=== PATIENT | male | born 1965 | race Caucasian/White ===

== ENCOUNTER 2017-11-19 12:33 | Inpatient (IN) | payer MEDICAID, MEDICARE ==
[~2017-11-19] VITALS: Ht 167.6 cm; Wt 65.8 kg
[2017-11-19] VITALS (11 sets, daily range): BP systolic 73–161
[~2017-11-19 12:33] MED LIST: ACET12.55 PO; ASA81 GT; ASCO500T20 GT; CHLO473M5 MM; DEPAK250 GT; DIPH25CA83 GT; DOCU-144 GT; DULR10 RC; FAMO40TA7 GT; FOLI-43 GT; IPRA0.2S6 INH; LIP20 GT; LORA-259 IM; LOVI30 SQ; MOM PO; MULT-1117 GT; NA P118E RC; ONDA4TAB5 GT; THIA100T13 GT; TYLL650 GT; UTI-STAT GT; XOP.63 INH; ZIN220 GT
[2017-11-19] MEDS ORDERED: NACL 0.9% 1,000 ML IV ONE (12:45)
[2017-11-19 13:04] LABS: BASOPHILS % (AUTO) 0.2 % (0.0-2.0); EOSINOPHILS # (AUTO) 0.4 K/uL (0.0-0.4); EOSINOPHILS % (AUTO) 2.9 % (0.0-4.0); HEMATOCRIT 33.8 % (36-54); HEMOGLOBIN 10.8 g/dL (14.0-18.0); LYMPHOCYTES # (AUTO) 0.7 K/uL (1.0-5.5); LYMPHOCYTES % (AUTO) 5.6 % (20.5-51.5); MEAN CORPUSCULAR HEMOGLOBIN 32 pg (27-31); MEAN CORPUSCULAR HGB CONC 32 % (32-36); MEAN CORPUSCULAR VOLUME 100 fL (79.0-98.0); MONOCYTES % (AUTO) 8.3 % (1.7-9.3); PLATELET COUNT (AUTO) 182 K/uL (130-430); RED BLOOD CELL COUNT(AUTO) 3.37 MIL/uL (4.2-6.2); RED CELL DISTRIBUTION WIDTH 12.4 % (9.0-15.0); WHITE BLOOD COUNT (AUTO) 12.1 K/uL (4.8-10.8)
[2017-11-19 13:09] LABS: PROTHROMBIN TIME 10.4 SECS (9.5-12.5)
[2017-11-19 13:17] LABS: ALBUMIN 3.1 g/dL (3.4-4.8); CALCIUM 8.6 mg/dL (8.4-11.0); CREATININE 0.82 mg/dL (0.55-1.30); POTASSIUM 4.7 mmol/L (3.5-5.1); TOTAL BILIRUBIN 0.2 mg/dL (0.0-1.0)
[2017-11-19 13:40] LABS: BILIRUBIN,URINE NEGATIVE (NEGATIVE); BLOOD, URINE NEGATIVE (NEGATIVE); CLARITY/URINE CLEAR (CLEAR); COLOR,URINE YELLOW (YELLOW); GLUCOSE,URINE NEGATIVE (NEGATIVE); KETONES,URINE NEGATIVE (NEGATIVE); LEUKOCYTE ESTERASE ,URINE NEGATIVE (NEGATIVE); NITRITE, URINE NEGATIVE (NEGATIVE); PROTEIN URINE 2+ (NEGATIVE); UROBILINOGEN,URINE 0.2 (0.2-1.0)
[2017-11-19 13:59] LABS: BACTERIA,URINE FEW /HPF (None Seen)
[2017-11-19 14:00] LABS: FINE GRANULAR CASTS,URINE 0-10 /LPF (None Seen)
[2017-11-19 14:01] LABS: MUCUS,URINE 1+ /LPF (None Seen); OTHER CASTS, URINE WBC CASTS 1+ /LPF (None Seen)
[2017-11-19] MEDS ORDERED: PIPERACILLIN/TAZO 3.375 GM in NS 50 ML IV ONE (14:30)
[2017-11-19] MEDS ORDERED: PIPERACILLIN/TAZOBACTAM 3.375 GM/VIAL (ZOSYN) IV ONE ×2 (15:04→21:04)
[2017-11-19] MEDS ORDERED: TRAM1TAB33 PO (15:12)
[2017-11-19] MEDS ORDERED: HYDR200T80 GT (15:12)
[2017-11-19] MEDS ORDERED: BACI1TAB2 GT (15:12)
[2017-11-19] MEDS ORDERED: LACT1CAP89 GT (15:12)
[2017-11-19] MEDS ORDERED: AZU500 GT (15:12)
[2017-11-19] MEDS ORDERED: ONDANSETRON 4 MG ODT TAB GT SCH (17:30)
[2017-11-19] MEDS ORDERED: DIPHENHYDRAMINE HCL 25 MG CAPSULE GT SCH (17:30)
[2017-11-19] MEDS ORDERED: VALPROIC ACID 250 MG CAPSULE (DEPAKENE) GT SCH (17:30)
[2017-11-19] MEDS ORDERED: CHLORHEXIDINE GLUCONATE 15 ML/DOSE, 480 ML MM SCH (17:30)
[2017-11-19] MEDS ORDERED: BISACODYL 10 MG/SUPPOSITORY RC PRN (17:30)
[2017-11-19] MEDS ORDERED: KCL 20 mEq in 0.45% NS 1000 mL 1,000 ML IV SCH (17:45)
[2017-11-19] MEDS ORDERED: NS 500 ML IV ONE (18:00)
[2017-11-19] MEDS ORDERED: NOREPINEPHRINE BITARTRATE 4 MG in NS 246 ML IV PRN (18:15)
[2017-11-19] MEDS ORDERED: NOREPINEPHRINE 4 MG/4 ML VIAL IV ONE (18:26)
[2017-11-19] MEDS: IPRATROPIUM BROM 0.5 MG/2.5 ML VIAL.NEB (ATROVENT) INH PRN (19:35)
[2017-11-19] MEDS: LEVALBUTEROL HCL 0.63 MG/3 ML VIAL.NEB INH SCH (19:35)
[2017-11-19] MEDS ORDERED: VANCOMYCIN HCL 1 GM/NS PREMIX 250 ML IV ONE (21:00)
[2017-11-19] MEDS ORDERED: cefTRIAXone 1 GM IVPB PREMIX 0 ML IV ONE (21:04)
[2017-11-19] MEDS ORDERED: HYDROXYCHLOROQUINE SULFATE 200 MG TABLET ONE (21:15)
[2017-11-19] MEDS ORDERED: VANCOMYCIN HCL 1000 MG/VIAL IV ONE (21:18)
[2017-11-19] MEDS: LACTULOSE 20 GM/30 ML UDC GT SCH (21:48)
[2017-11-19] MEDS: KCL 20 mEq in D5NS 1000 mL 1,000 ML IV SCH (21:48)
[2017-11-19] MEDS: MILK OF MAGNESIA 30 ML UDC PO SCH (21:48)
[2017-11-19] MEDS: ACETAMINOPHEN WITH CODEINE 12.5 ML UDC PO SCH (21:49)
[2017-11-19] MEDS: DOCUSATE SODIUM 100 MG CAPSULE PO SCH (21:51)
[2017-11-19] MEDS: HYDROXYCHLOROQUINE SULFATE 200 MG TABLET GT SCH (21:51)
[2017-11-19] MEDS: PIPERACILLIN/TAZO 3.375/DEX-IS 50 ML IV SCH (21:51)
[2017-11-19] MEDS: ASCORBIC ACID 500 MG TABLET GT SCH (21:51)
[2017-11-19] MEDS: ATORVASTATIN 20 MG TABLET GT SCH (21:55)
[2017-11-19] MEDS: sulfASALAZINE 500 MG TABLET (AZULFIDINE) GT SCH (22:23)
[2017-11-19] MEDS ORDERED: sulfASALAZINE 500 MG TABLET (AZULFIDINE) ONE (22:26)
[2017-11-20] VITALS (34 sets, daily range): BP systolic 84–170
[2017-11-20] MEDS: PIPERACILLIN/TAZO 3.375/DEX-IS 50 ML IV SCH ×4 (00:09→17:41)
[2017-11-20] MEDS ORDERED: VALPROIC ACID ORAL SYRUP 250 MG/5 ML UDC GT SCH (00:30)
[2017-11-20] MEDS ORDERED: VALPROIC ACID 250 MG CAPSULE (DEPAKENE) ONE (00:52)
[2017-11-20] MEDS: ACETAMINOPHEN 650 MG/20.3 ML UDC GT SCH (02:10)
[2017-11-20] MEDS ORDERED: VALPROIC ACID 250 MG CAPSULE (DEPAKENE) GT SCH (06:00)
[2017-11-20 07:04] LABS: BASOPHILS % (AUTO) 0.2 % (0.0-2.0); HEMATOCRIT 28.1 % (36-54); HEMOGLOBIN 9.2 g/dL (14.0-18.0); LYMPHOCYTES # (AUTO) 0.4 K/uL (1.0-5.5); LYMPHOCYTES % (AUTO) 3.5 % (20.5-51.5); MEAN CORPUSCULAR HEMOGLOBIN 32 pg (27-31); MEAN CORPUSCULAR HGB CONC 33 % (32-36); MEAN CORPUSCULAR VOLUME 99 fL (79.0-98.0); MONOCYTES # (AUTO) 1.3 K/uL (0.0-1.0); MONOCYTES % (AUTO) 11.4 % (1.7-9.3); NEUTROPHILS # (AUTO) 9.8 K/uL (1.8-7.7); NEUTROPHILS % (AUTO) 84.9 % (40.0-70.0); PLATELET COUNT (AUTO) 146 K/uL (130-430); RED BLOOD CELL COUNT(AUTO) 2.85 MIL/uL (4.2-6.2); WHITE BLOOD COUNT (AUTO) 11.5 K/uL (4.8-10.8)
[2017-11-20 07:11] LABS: CALCIUM 8.6 mg/dL (8.4-11.0); CHLORIDE 100 mmol/L (98-107); CREATININE 1.52 mg/dL (0.55-1.30); GLUCOSE 127 mg/dL (70-99); POTASSIUM 3.6 mmol/L (3.5-5.1); SODIUM SERUM 138 mmol/L (136-145); UREA NITROGEN, BLOOD 29 mg/dL (8-21)
[2017-11-20 07:21] LABS: GFR AFRICAN AMERICAN 62 mL/min (>90)
[2017-11-20 07:22] LABS: ANION GAP < 3 (5-15)
[2017-11-20] MEDS: LORazepam 2 MG/ML VIAL IVP PRN ×2 (07:33→13:31)
[2017-11-20] MEDS ORDERED: CHLORHEXIDINE GLUCONATE 15 ML/DOSE, 480 ML MM SCH (07:51)
[2017-11-20] MEDS ORDERED: NS 500 ML IV ONE (08:30)
[2017-11-20] MEDS: ENOXAPARIN SODIUM 30 MG/0.3 ML SYRINGE SQ SCH (10:10)
[2017-11-20] MEDS: ASCORBIC ACID 500 MG TABLET GT SCH ×2 (10:11→20:35)
[2017-11-20] MEDS: FOLIC ACID 1 MG TABLET GT SCH (10:11)
[2017-11-20] MEDS: ASPIRIN 81 MG TAB.CHEW GT SCH (10:11)
[2017-11-20] MEDS: ACETAMINOPHEN WITH CODEINE 12.5 ML UDC PO SCH (10:11)
[2017-11-20] MEDS: LACTULOSE 20 GM/30 ML UDC GT SCH ×3 (10:11→20:34)
[2017-11-20] MEDS: FAMOTIDINE 20 MG TABLET GT SCH (10:11)
[2017-11-20] MEDS: DOCUSATE SODIUM 100 MG CAPSULE PO SCH ×2 (10:12→20:36)
[2017-11-20] MEDS: MULTIVITAMINS TAB 1 TABLET GT SCH (10:12)
[2017-11-20] MEDS: sulfASALAZINE 500 MG TABLET (AZULFIDINE) GT SCH ×2 (10:12→21:20)
[2017-11-20] MEDS: THIAMINE HCL 100 MG TABLET GT SCH (10:12)
[2017-11-20] MEDS: HYDROXYCHLOROQUINE SULFATE 200 MG TABLET GT SCH ×2 (10:13→21:17)
[2017-11-20] MEDS: VALPROIC ACID ORAL SYRUP 250 MG/5 ML UDC GT SCH ×2 (10:14→21:18)
[2017-11-20] MEDS: KCL 20 mEq in D5NS 1000 mL 1,000 ML IV SCH ×2 (10:19→13:31)
[2017-11-20] MEDS: NOREPINEPHRINE BITARTRATE 4 MG in D5W 246 ML IV PRN ×2 (10:20→14:25)
[2017-11-20] MEDS ORDERED: EPINEPHrine JECT 1 MG/10 ML SYR IVP ONE ×2 (12:30→14:42)
[2017-11-20] MEDS ORDERED: AMIODARONE HCL 150 MG/3ML VIAL IV ONE (12:30)
[2017-11-20] MEDS ORDERED: INSULIN REGULAR, HUMAN 100 UNITS/ML, 10 ML VIAL (novoLIN R) SUBCUT PRN (14:30)
[2017-11-20] MEDS ORDERED: MAGNESIUM SULFATE 1 GM/2 ML VIAL IV ONE (14:42)
[2017-11-20] MEDS ORDERED: NS 1000 ML IV.SOLN IV ONE (14:42)
[2017-11-20] MEDS ORDERED: DEXTROSE 50%-WATER 50 ML DISP.SYRIN IVP PRN ×2 (14:45)
[2017-11-20] MEDS ORDERED: GLUCOSE 15 GM GEL (in 37.5 GM TUBE) PO PRN ×2 (14:45)
[2017-11-20] MEDS ORDERED: NITROGLYCERIN 1 INCH (GM) OINT. TP ONE (15:00)
[2017-11-20] MEDS ORDERED: AMIODARONE HCL 900 MG in D5W 482 ML IV SCH (19:30)
[2017-11-20] MEDS: MILK OF MAGNESIA 30 ML UDC PO SCH (20:34)
[2017-11-20] MEDS: ATORVASTATIN 20 MG TABLET GT SCH (20:35)
[2017-11-20] MEDS: ACETAMINOPHEN WITH CODEINE 12.5 ML UDC GT SCH (20:35)
[2017-11-20] MEDS: QUEtiapine FUMARATE 25 MG TABLET PO SCH (21:00)
[2017-11-20] MEDS: VANCOMYCIN HCL 1,250 MG in NS 250 ML IV SCH (21:21)
[2017-11-20] MEDS: NITROGLYCERIN 1 INCH (GM) OINT. TP SCH (22:25)
[2017-11-21] VITALS (32 sets, daily range): BP systolic 92–127
[2017-11-21] MEDS: KCL 20 mEq in D5NS 1000 mL 1,000 ML IV SCH ×3 (00:15→23:20)
[2017-11-21] MEDS: PIPERACILLIN/TAZO 3.375/DEX-IS 50 ML IV SCH ×5 (00:16→23:20)
[2017-11-21] MEDS: LORazepam 2 MG/ML VIAL IVP PRN ×6 (02:56→20:19)
[2017-11-21] MEDS: NITROGLYCERIN 1 INCH (GM) OINT. TP SCH ×3 (06:02→21:51)
[2017-11-21 06:58] LABS: ALBUMIN 2.2 g/dL (3.4-4.8); CALCIUM 7.8 mg/dL (8.4-11.0); CREATININE 1.33 mg/dL (0.55-1.30); POTASSIUM 3.3 mmol/L (3.5-5.1); TOTAL BILIRUBIN 0.4 mg/dL (0.0-1.0)
[2017-11-21 07:23] LABS: BASOPHILS % (AUTO) 0.4 % (0.0-2.0); EOSINOPHILS % (AUTO) 0.6 % (0.0-4.0); HEMATOCRIT 22.9 % (36-54); HEMOGLOBIN 7.5 g/dL (14.0-18.0); LYMPHOCYTES # (AUTO) 0.7 K/uL (1.0-5.5); LYMPHOCYTES % (AUTO) 9.3 % (20.5-51.5); MEAN CORPUSCULAR HEMOGLOBIN 32 pg (27-31); MEAN CORPUSCULAR HGB CONC 33 % (32-36); MEAN CORPUSCULAR VOLUME 98 fL (79.0-98.0); MONOCYTES # (AUTO) 0.9 K/uL (0.0-1.0); MONOCYTES % (AUTO) 12.6 % (1.7-9.3); NEUTROPHILS # (AUTO) 5.8 K/uL (1.8-7.7); NEUTROPHILS % (AUTO) 77.1 % (40.0-70.0); PLATELET COUNT (AUTO) 128 K/uL (130-430); RED BLOOD CELL COUNT(AUTO) 2.34 MIL/uL (4.2-6.2); RED CELL DISTRIBUTION WIDTH 12.7 % (9.0-15.0); WHITE BLOOD COUNT (AUTO) 7.4 K/uL (4.8-10.8)
[2017-11-21] MEDS: ENOXAPARIN SODIUM 30 MG/0.3 ML SYRINGE SQ SCH (09:04)
[2017-11-21] MEDS: LACTULOSE 20 GM/30 ML UDC GT SCH ×3 (09:04→20:21)
[2017-11-21] MEDS: ACETAMINOPHEN WITH CODEINE 12.5 ML UDC GT SCH ×2 (09:05→20:20)
[2017-11-21] MEDS: THIAMINE HCL 100 MG TABLET GT SCH (09:06)
[2017-11-21] MEDS: MULTIVITAMINS TAB 1 TABLET GT SCH (09:06)
[2017-11-21] MEDS: ASPIRIN 81 MG TAB.CHEW GT SCH (09:06)
[2017-11-21] MEDS: QUEtiapine FUMARATE 25 MG TABLET PO SCH ×2 (09:06→20:21)
[2017-11-21] MEDS: FOLIC ACID 1 MG TABLET GT SCH (09:06)
[2017-11-21] MEDS: AMIODARONE HCL 200 MG TABLET PO SCH ×2 (09:06→20:22)
[2017-11-21] MEDS: ASCORBIC ACID 500 MG TABLET GT SCH ×2 (09:06→20:21)
[2017-11-21] MEDS: VALPROIC ACID ORAL SYRUP 250 MG/5 ML UDC GT SCH ×2 (09:07→20:20)
[2017-11-21] MEDS: FAMOTIDINE 20 MG TABLET GT SCH (09:07)
[2017-11-21] MEDS: DOCUSATE SODIUM 100 MG CAPSULE PO SCH ×2 (09:07→20:21)
[2017-11-21] MEDS: sulfASALAZINE 500 MG TABLET (AZULFIDINE) GT SCH ×2 (09:08→20:23)
[2017-11-21] MEDS: HYDROXYCHLOROQUINE SULFATE 200 MG TABLET GT SCH ×2 (09:18→20:21)
[2017-11-21] MEDS: NA PHOS,M-B/NA PHOS,DI-BA 118 ML (FLEET ENEMA) RC SCH (10:25)
[2017-11-21] MEDS: MILK OF MAGNESIA 30 ML UDC PO SCH (20:21)
[2017-11-21] MEDS: ATORVASTATIN 20 MG TABLET GT SCH (20:21)
[2017-11-21] MEDS: VANCOMYCIN HCL 1,250 MG in NS 250 ML IV SCH (20:24)
[2017-11-22] VITALS (20 sets, daily range): BP systolic 96–124
[2017-11-22] MEDS ORDERED: NITROGLYCERIN 1 INCH (GM) OINT. ONE (06:18)
[2017-11-22] MEDS: PIPERACILLIN/TAZO 3.375/DEX-IS 50 ML IV SCH ×4 (06:30→23:57)
[2017-11-22] MEDS: NITROGLYCERIN 1 INCH (GM) OINT. TP SCH ×3 (06:31→22:50)
[2017-11-22 06:44] LABS: ALANINE AMINOTRANSFERASE 54 U/L (12-78); ASPARTATE AMINOTRANSFERASE 56 U/L (10-37); CALCIUM 7.9 mg/dL (8.4-11.0); CHLORIDE 109 mmol/L (98-107); CREATININE 1.18 mg/dL (0.55-1.30); GLUCOSE 92 mg/dL (70-99); POTASSIUM 3.2 mmol/L (3.5-5.1); SODIUM SERUM 141 mmol/L (136-145); TOTAL BILIRUBIN 0.2 mg/dL (0.0-1.0); UREA NITROGEN, BLOOD 14 mg/dL (8-21)
[2017-11-22 07:04] LABS: ANION GAP < 3 (5-15); GFR AFRICAN AMERICAN 83 mL/min (>90)
[2017-11-22] MEDS: LORazepam 2 MG/ML VIAL IVP PRN ×3 (07:23→10:16)
[2017-11-22] MEDS: IPRATROPIUM BROM 0.5 MG/2.5 ML VIAL.NEB (ATROVENT) INH PRN (07:38)
[2017-11-22] MEDS: LEVALBUTEROL HCL 0.63 MG/3 ML VIAL.NEB INH SCH (07:38)
[2017-11-22] MEDS ORDERED: POTASSIUM CHLORIDE 20 MEQ/PKT PACKET PO ONE (07:45)
[2017-11-22 07:50] LABS: EOSINOPHILS # (AUTO) 0.3 K/uL (0.0-0.4); EOSINOPHILS % (AUTO) 7.1 % (0.0-4.0); HEMATOCRIT 22.4 % (36-54); HEMOGLOBIN 7.1 g/dL (14.0-18.0); LYMPHOCYTES # (AUTO) 0.7 K/uL (1.0-5.5); LYMPHOCYTES % (AUTO) 19.1 % (20.5-51.5); MEAN CORPUSCULAR HEMOGLOBIN 31 pg (27-31); MEAN CORPUSCULAR HGB CONC 32 % (32-36); MEAN CORPUSCULAR VOLUME 99 fL (79.0-98.0); MONOCYTES # (AUTO) 0.4 K/uL (0.0-1.0); MONOCYTES % (AUTO) 11.7 % (1.7-9.3); NEUTROPHILS # (AUTO) 2.3 K/uL (1.8-7.7); NEUTROPHILS % (AUTO) 61.1 % (40.0-70.0); PLATELET COUNT (AUTO) 113 K/uL (130-430); RED BLOOD CELL COUNT(AUTO) 2.28 MIL/uL (4.2-6.2); RED CELL DISTRIBUTION WIDTH 12.9 % (9.0-15.0)
[2017-11-22] MEDS: ACETAMINOPHEN WITH CODEINE 12.5 ML UDC GT SCH ×2 (08:23→21:34)
[2017-11-22] MEDS: ENOXAPARIN SODIUM 30 MG/0.3 ML SYRINGE SQ SCH (08:23)
[2017-11-22] MEDS: QUEtiapine FUMARATE 25 MG TABLET PO SCH ×2 (08:24→21:32)
[2017-11-22] MEDS: MULTIVITAMINS TAB 1 TABLET GT SCH (08:24)
[2017-11-22] MEDS: FOLIC ACID 1 MG TABLET GT SCH (08:24)
[2017-11-22] MEDS: DOCUSATE SODIUM 100 MG CAPSULE PO SCH ×2 (08:24→21:32)
[2017-11-22] MEDS: LACTULOSE 20 GM/30 ML UDC GT SCH ×3 (08:24→21:33)
[2017-11-22] MEDS: FAMOTIDINE 20 MG TABLET GT SCH (08:25)
[2017-11-22] MEDS: ASPIRIN 81 MG TAB.CHEW GT SCH (08:25)
[2017-11-22] MEDS: ASCORBIC ACID 500 MG TABLET GT SCH ×2 (08:25→21:32)
[2017-11-22] MEDS: THIAMINE HCL 100 MG TABLET GT SCH (08:25)
[2017-11-22] MEDS: AMIODARONE HCL 200 MG TABLET PO SCH ×2 (08:25→21:32)
[2017-11-22] MEDS: VALPROIC ACID ORAL SYRUP 250 MG/5 ML UDC GT SCH ×2 (08:29→21:33)
[2017-11-22] MEDS: HYDROXYCHLOROQUINE SULFATE 200 MG TABLET GT SCH ×2 (08:30→21:31)
[2017-11-22] MEDS ORDERED: POTASSIUM CHLORIDE 20 MEQ/PKT PACKET ONE (08:54)
[2017-11-22 08:57] LABS: WHITE BLOOD COUNT (AUTO) 3.7 K/uL (4.8-10.8)
[2017-11-22] MEDS: sulfASALAZINE 500 MG TABLET (AZULFIDINE) GT SCH ×2 (09:16→21:34)
[2017-11-22] MEDS: KCL 20 mEq in D5NS 1000 mL 1,000 ML IV SCH ×2 (15:53→17:56)
[2017-11-22] MEDS: ATORVASTATIN 20 MG TABLET GT SCH (21:32)
[2017-11-22] MEDS: MILK OF MAGNESIA 30 ML UDC PO SCH (21:34)
[2017-11-22] MEDS: VANCOMYCIN HCL 1,250 MG in NS 250 ML IV SCH (21:35)
[2017-11-23 00:45] VITALS: BP_SYST 115
[2017-11-23] MEDS: IPRATROPIUM BROM 0.5 MG/2.5 ML VIAL.NEB (ATROVENT) INH PRN (01:51)
[2017-11-23] MEDS: LORazepam 2 MG/ML VIAL IVP PRN ×3 (02:28→11:12)
[2017-11-23] MEDS: NITROGLYCERIN 1 INCH (GM) OINT. TP SCH ×3 (06:00→22:00)
[2017-11-23] MEDS: PIPERACILLIN/TAZO 3.375/DEX-IS 50 ML IV SCH ×3 (07:05→18:52)
[2017-11-23 08:00] VITALS: BP_SYST 134
[2017-11-23 08:20] LABS: CALCIUM 8.3 mg/dL (8.4-11.0); CREATININE 1.21 mg/dL (0.55-1.30); POTASSIUM 4.3 mmol/L (3.5-5.1)
[2017-11-23 08:23] LABS: BASOPHILS % (AUTO) 0.4 % (0.0-2.0); EOSINOPHILS # (AUTO) 0.5 K/uL (0.0-0.4); EOSINOPHILS % (AUTO) 10.2 % (0.0-4.0); HEMATOCRIT 29.3 % (36-54); HEMOGLOBIN 10.2 g/dL (14.0-18.0); LYMPHOCYTES # (AUTO) 0.5 K/uL (1.0-5.5); MEAN CORPUSCULAR HEMOGLOBIN 32 pg (27-31); MEAN CORPUSCULAR HGB CONC 35 % (32-36); MEAN CORPUSCULAR VOLUME 93 fL (79.0-98.0); MONOCYTES # (AUTO) 0.4 K/uL (0.0-1.0); MONOCYTES % (AUTO) 8.2 % (1.7-9.3); NEUTROPHILS # (AUTO) 3.8 K/uL (1.8-7.7); NEUTROPHILS % (AUTO) 71.2 % (40.0-70.0); PLATELET COUNT (AUTO) 124 K/uL (130-430); RED BLOOD CELL COUNT(AUTO) 3.15 MIL/uL (4.2-6.2); WHITE BLOOD COUNT (AUTO) 5.2 K/uL (4.8-10.8)
[2017-11-23 08:29] LABS: ALBUMIN 2.3 g/dL (3.4-4.8); TOTAL BILIRUBIN 0.3 mg/dL (0.0-1.0)
[2017-11-23] MEDS: HYDROXYCHLOROQUINE SULFATE 200 MG TABLET GT SCH ×2 (10:31→21:46)
[2017-11-23] MEDS: VALPROIC ACID ORAL SYRUP 250 MG/5 ML UDC GT SCH ×2 (10:31→21:47)
[2017-11-23] MEDS: MULTIVITAMINS TAB 1 TABLET GT SCH (10:32)
[2017-11-23] MEDS: AMIODARONE HCL 200 MG TABLET PO SCH ×2 (10:32→21:52)
[2017-11-23] MEDS: FAMOTIDINE 20 MG TABLET GT SCH (10:32)
[2017-11-23] MEDS: FOLIC ACID 1 MG TABLET GT SCH (10:32)
[2017-11-23] MEDS: DOCUSATE SODIUM 100 MG CAPSULE PO SCH ×2 (10:32→21:46)
[2017-11-23] MEDS: ASPIRIN 81 MG TAB.CHEW GT SCH (10:32)
[2017-11-23] MEDS: ENOXAPARIN SODIUM 30 MG/0.3 ML SYRINGE SQ SCH (10:33)
[2017-11-23] MEDS: LACTULOSE 20 GM/30 ML UDC GT SCH ×3 (10:33→21:47)
[2017-11-23] MEDS: ASCORBIC ACID 500 MG TABLET GT SCH ×2 (10:33→21:47)
[2017-11-23] MEDS: QUEtiapine FUMARATE 25 MG TABLET PO SCH ×2 (10:34→21:46)
[2017-11-23] MEDS: THIAMINE HCL 100 MG TABLET GT SCH (10:34)
[2017-11-23] MEDS: NA PHOS,M-B/NA PHOS,DI-BA 118 ML (FLEET ENEMA) RC SCH (10:35)
[2017-11-23] MEDS: sulfASALAZINE 500 MG TABLET (AZULFIDINE) GT SCH ×2 (10:35→21:47)
[2017-11-23 12:16] VITALS: BP_SYST 127
[2017-11-23] MEDS: 0.45% NACL 1,000 ML IV SCH (13:14)
[2017-11-23] MEDS: ACETAMINOPHEN WITH CODEINE 12.5 ML UDC GT SCH ×2 (15:46→21:49)
[2017-11-23 19:36] VITALS: BP_SYST 128
[2017-11-23] MEDS ORDERED: VANCOMYCIN HCL 500 MG/VIAL IV ONE (21:35)
[2017-11-23] MEDS ORDERED: VANCOMYCIN HCL 1000 MG/VIAL IV ONE (21:35)
[2017-11-23] MEDS: ATORVASTATIN 20 MG TABLET GT SCH (21:46)
[2017-11-23] MEDS: MILK OF MAGNESIA 30 ML UDC PO SCH (21:48)
[2017-11-23] MEDS: VANCOMYCIN HCL 1,250 MG in NS 250 ML IV SCH (21:53)
[2017-11-24] VITALS (8 sets, daily range): BP systolic 116–157
[2017-11-24] MEDS: PIPERACILLIN/TAZO 3.375/DEX-IS 50 ML IV SCH ×4 (00:07→17:23)
[2017-11-24] MEDS: NITROGLYCERIN 1 INCH (GM) OINT. TP SCH ×3 (05:04→21:21)
[2017-11-24] MEDS: HYDROXYCHLOROQUINE SULFATE 200 MG TABLET GT SCH ×2 (08:55→20:26)
[2017-11-24] MEDS: VALPROIC ACID ORAL SYRUP 250 MG/5 ML UDC GT SCH ×2 (08:56→20:19)
[2017-11-24] MEDS: LACTULOSE 20 GM/30 ML UDC GT SCH ×3 (08:56→20:19)
[2017-11-24] MEDS: ACETAMINOPHEN WITH CODEINE 12.5 ML UDC GT SCH ×2 (08:57→20:20)
[2017-11-24] MEDS: QUEtiapine FUMARATE 25 MG TABLET PO SCH ×2 (08:58→20:21)
[2017-11-24] MEDS: MULTIVITAMINS TAB 1 TABLET GT SCH (08:58)
[2017-11-24] MEDS: FAMOTIDINE 20 MG TABLET GT SCH (08:58)
[2017-11-24] MEDS: FOLIC ACID 1 MG TABLET GT SCH (08:58)
[2017-11-24] MEDS: DOCUSATE SODIUM 100 MG CAPSULE PO SCH ×2 (08:59→20:22)
[2017-11-24] MEDS: THIAMINE HCL 100 MG TABLET GT SCH (08:59)
[2017-11-24] MEDS: ASCORBIC ACID 500 MG TABLET GT SCH ×2 (08:59→20:21)
[2017-11-24] MEDS: AMIODARONE HCL 200 MG TABLET PO SCH ×2 (08:59→20:21)
[2017-11-24] MEDS: sulfASALAZINE 500 MG TABLET (AZULFIDINE) GT SCH ×2 (09:00→20:22)
[2017-11-24] MEDS: ASPIRIN 81 MG TAB.CHEW GT SCH (09:00)
[2017-11-24] MEDS: ENOXAPARIN SODIUM 30 MG/0.3 ML SYRINGE SQ SCH (09:02)
[2017-11-24] MEDS: 0.45% NACL 1,000 ML IV SCH (12:09)
[2017-11-24] MEDS: ACETAMINOPHEN 650 MG/20.3 ML UDC GT SCH (17:22)
[2017-11-24] MEDS: MILK OF MAGNESIA 30 ML UDC PO SCH (20:19)
[2017-11-24] MEDS: VANCOMYCIN HCL 1,250 MG in NS 250 ML IV SCH (20:19)
[2017-11-24] MEDS: ATORVASTATIN 20 MG TABLET GT SCH (20:22)
== END 2017-11-25 00:22 | DRG 720 ==
LOC: SED 12:33 → SIC 15:06 → STU 11-22 16:21
PROVIDERS: ADMIT Family Medicine; ATTEND Family Medicine
PROC: 5A1955Z Respiratory Ventilation, Greater than 96 Consecutive Hours (ICD-10-PCS; principal; 2017-11-19)
PROC: 5A12012 Performance of Cardiac Output, Single, Manual (ICD-10-PCS; 2017-11-20)
PROC: 5A2204Z Restoration of Cardiac Rhythm, Single (ICD-10-PCS; 2017-11-20)
PROC: 0D20XUZ Change Feeding Device in Upper Intestinal Tract, External Approach (ICD-10-PCS; 2017-11-22)
PROC: 30233N1 Transfusion of Nonautologous Red Blood Cells into Peripheral Vein, Percutaneous Approach (ICD-10-PCS; 2017-11-23)
DX: A41.9 Sepsis, unspecified organism (principal); I46.9 Cardiac arrest, cause unspecified; I21.A1 Myocardial infarction type 2; Z99.11 Dependence on respirator [ventilator] status; G93.41 Metabolic encephalopathy; J96.22 Acute and chronic respiratory failure with hypercapnia; J15.1 Pneumonia due to Pseudomonas; J15.211 Pneumonia due to Methicillin susceptible Staphylococcus aureus; Z93.0 Tracheostomy status; J69.0 Pneumonitis due to inhalation of food and vomit; D69.6 Thrombocytopenia, unspecified; D63.8 Anemia in other chronic diseases classified elsewhere; I47.2 Ventricular tachycardia; K72.90 Hepatic failure, unspecified without coma; R53.2 Functional quadriplegia; R13.10 Dysphagia, unspecified; K94.23 Gastrostomy malfunction; I49.9 Cardiac arrhythmia, unspecified; E78.00 Pure hypercholesterolemia, unspecified; F32.9 Major depressive disorder, single episode, unspecified; E11.9 Type 2 diabetes mellitus without complications; M06.9 Rheumatoid arthritis, unspecified; G40.909 Epilepsy, unspecified, not intractable, without status epilepticus; H35.50 Unspecified hereditary retinal dystrophy; Y83.3 Surgical operation with formation of external stoma as the cause of abnormal reaction of the patient, or of later complication, without mention of misadventure at the time of the procedure; H54.8 Legal blindness, as defined in USA; Z87.01 Personal history of pneumonia (recurrent); Z95.0 Presence of cardiac pacemaker; Z91.011 Allergy to milk products; Z79.899 Other long term (current) drug therapy; Z79.01 Long term (current) use of anticoagulants; Z86.73 Personal history of transient ischemic attack (TIA), and cerebral infarction without residual deficits; Z79.82 Long term (current) use of aspirin; Y92.89 Other specified places as the place of occurrence of the external cause; Z78.1 Physical restraint status; Z74.01 Bed confinement status
CPT/HCPCS: 36415; 36600; 43760; 70450-TC; 71045; 74018; 80048; 80053; 80164-TC; 80202-TC; 81000-TC; 82140-TC; 82803-TC; 82962; 83605; 83880; 84484; 85025; 85610-TC; 85730-TC; 86886; 86900; 86901; 86920; 87040-TC; 87070-TC; 87081; 87086; 87186-TC; 87205-TC; 93005; 93306; 94002; 94003; 94640; 94760; 96360; 99291; J0171; J0282; J0696; J1650; J1815; J2060; J2543; J3370; J3475; J7030; J7040; J7050; J7060; J7614; P9021; Q0162; Q0163

== ENCOUNTER 2017-12-30 12:59 | Inpatient (IN) | payer MEDICAID, OTHER ==
[~2017-12-30] VITALS: Ht 152.4 cm; Wt 55.8 kg
[~2017-12-30 12:59] MED LIST changes: +AZU500 GT; +BACI1TAB2 GT; +HYDR200T80 GT; +LACT1CAP89 GT; +TRAM1TAB33 PO
[2017-12-30 13:02] VITALS: BP_SYST 140
[2017-12-30 13:38] LABS: BASOPHILS % (AUTO) 0.2 % (0.0-2.0); EOSINOPHILS # (AUTO) 0.1 K/uL (0.0-0.4); EOSINOPHILS % (AUTO) 0.5 % (0.0-4.0); HEMATOCRIT 37.3 % (36-54); HEMOGLOBIN 11.6 g/dL (14.0-18.0); LYMPHOCYTES # (AUTO) 0.4 K/uL (1.0-5.5); LYMPHOCYTES % (AUTO) 3.6 % (20.5-51.5); MEAN CORPUSCULAR HEMOGLOBIN 30 pg (27-31); MEAN CORPUSCULAR HGB CONC 31 % (32-36); MEAN CORPUSCULAR VOLUME 98 fL (79.0-98.0); MONOCYTES # (AUTO) 0.7 K/uL (0.0-1.0); MONOCYTES % (AUTO) 6.7 % (1.7-9.3); NEUTROPHILS # (AUTO) 9.4 K/uL (1.8-7.7); PLATELET COUNT (AUTO) 185 K/uL (130-430); RED BLOOD CELL COUNT(AUTO) 3.82 MIL/uL (4.2-6.2); RED CELL DISTRIBUTION WIDTH 13.8 % (9.0-15.0); WHITE BLOOD COUNT (AUTO) 10.6 K/uL (4.8-10.8)
[2017-12-30 13:40] LABS: CALCIUM 9.3 mg/dL (8.4-11.0); CHLORIDE 100 mmol/L (98-107); CREATININE 1.04 mg/dL (0.55-1.30); GLUCOSE 97 mg/dL (70-99); POTASSIUM 5.1 mmol/L (3.5-5.1); SODIUM SERUM 140 mmol/L (136-145); UREA NITROGEN, BLOOD 27 mg/dL (8-21)
[2017-12-30 13:44] LABS: ANION GAP < 1 (5-15); GFR AFRICAN AMERICAN 96 mL/min (>90)
[2017-12-30 13:46] LABS: ALANINE AMINOTRANSFERASE 36 U/L (12-78); ALBUMIN 3.2 g/dL (3.4-4.8); ASPARTATE AMINOTRANSFERASE 47 U/L (10-37); TOTAL BILIRUBIN 0.3 mg/dL (0.0-1.0); VALPROIC ACID 22 ug/mL (50-100)
[2017-12-30 13:49] LABS: INR 1.1 (0.80-1.20); PROTHROMBIN TIME 11.1 SECS (9.5-12.5)
[2017-12-30 13:59] LABS: BILIRUBIN,URINE NEGATIVE (NEGATIVE); BLOOD, URINE NEGATIVE (NEGATIVE); CLARITY/URINE CLEAR (CLEAR); COLOR,URINE YELLOW (YELLOW); GLUCOSE,URINE NEGATIVE (NEGATIVE); KETONES,URINE NEGATIVE (NEGATIVE); LEUKOCYTE ESTERASE ,URINE NEGATIVE (NEGATIVE); NITRITE, URINE NEGATIVE (NEGATIVE); PROTEIN URINE 1+ (NEGATIVE); UROBILINOGEN,URINE 0.2 (0.2-1.0)
[2017-12-30] MEDS ORDERED: ASPIRIN 81 MG TAB.CHEW PO ONE (14:00)
[2017-12-30] MEDS ORDERED: LORazepam 2 MG/ML VIAL (FOR ER USE) IVP ONE (14:00)
[2017-12-30] MEDS ORDERED: NS 500 ML IV ONE ×2 (14:00→15:45)
[2017-12-30 14:17] LABS: BACTERIA,URINE FEW /HPF (None Seen); MUCUS,URINE None Seen /LPF (None Seen); RBC,URINE NONE SEEN /HPF (0-3); TRIPLE PHOSPHATE CRYSTAL,UR 0-10 /HPF (None Seen); WBC,URINE 0-3 /HPF (0-3)
[2017-12-30] MEDS ORDERED: DIPH-TET-PERTUS Vaccine 0.5 ML VIAL (ADACEL) I.M. ONE (15:45)
[2017-12-30] MEDS ORDERED: PANTOPRAZOLE SODIUM 40 MG/VIAL (PROTONIX) IVP ONE (15:45)
[2017-12-30] MEDS ORDERED: TYLL650 PO (15:58)
[2017-12-30] MEDS ORDERED: VALP250S3 GT (15:58)
[2017-12-30] MEDS ORDERED: D5LR 1,000 ML IV ONE (16:00)
[2017-12-30] MEDS ORDERED: ONDANSETRON HCL 4 MG/2 ML VIAL IVP PRN (16:00)
[2017-12-30] MEDS ORDERED: IPRATROPIUM/ALBUTEROL SULFATE 3 ML AMPUL.NEB (DUONEB) INH PRN (16:00)
[2017-12-30 16:50] VITALS: BP_SYST 168
[2017-12-30 17:00] VITALS: BP_SYST 134; BP_SYST 167
[2017-12-30 17:30] VITALS: BP_SYST 134
[2017-12-30] MEDS ORDERED: PANTOPRAZOLE SODIUM 40 MG/VIAL (PROTONIX) ONE ×2 (17:58→21:24)
[2017-12-30] MEDS: PANTOPRAZOLE SODIUM 40 MG in NS 50 ML IV SCH ×2 (17:59→21:20)
[2017-12-30 18:44] LABS: BASOPHILS % (AUTO) 0.3 % (0.0-2.0); EOSINOPHILS % (AUTO) 0.4 % (0.0-4.0); HEMATOCRIT 35.3 % (36-54); LYMPHOCYTES # (AUTO) 0.3 K/uL (1.0-5.5); LYMPHOCYTES % (AUTO) 2.7 % (20.5-51.5); MEAN CORPUSCULAR HEMOGLOBIN 31 pg (27-31); MEAN CORPUSCULAR HGB CONC 31 % (32-36); MEAN CORPUSCULAR VOLUME 99 fL (79.0-98.0); MONOCYTES # (AUTO) 0.4 K/uL (0.0-1.0); MONOCYTES % (AUTO) 3.6 % (1.7-9.3); NEUTROPHILS # (AUTO) 9.9 K/uL (1.8-7.7); PLATELET COUNT (AUTO) 168 K/uL (130-430); RED BLOOD CELL COUNT(AUTO) 3.58 MIL/uL (4.2-6.2); RED CELL DISTRIBUTION WIDTH 14.3 % (9.0-15.0); WHITE BLOOD COUNT (AUTO) 10.6 K/uL (4.8-10.8)
[2017-12-30 18:48] LABS: CALCIUM 8.7 mg/dL (8.4-11.0); CHLORIDE 101 mmol/L (98-107); CREATININE 0.98 mg/dL (0.55-1.30); GLUCOSE 138 mg/dL (70-99); POTASSIUM 4.8 mmol/L (3.5-5.1); SODIUM SERUM 142 mmol/L (136-145); UREA NITROGEN, BLOOD 29 mg/dL (8-21)
[2017-12-30 18:52] LABS: GFR AFRICAN AMERICAN 103 mL/min (>90)
[2017-12-30 19:35] LABS: ANION GAP < 3 (5-15)
[2017-12-30 19:37] LABS: CKMB RELATIVE INDEX 1.7 (0.0-2.9); CREATINE KINASE MB 7.6 ng/mL (0-3.6)
[2017-12-30 20:00] VITALS: BP_SYST 139
[2017-12-30] MEDS: IPRATROPIUM/ALBUTEROL SULFATE 3 ML AMPUL.NEB (DUONEB) INH SCH ×2 (20:55→23:18)
[2017-12-30] MEDS ORDERED: LORazepam 2 MG/ML VIAL IVP PRN (23:45)
[2017-12-30] MEDS ORDERED: ACETAMINOPHEN 650 MG/20.3 ML UDC PO PRN (23:45)
[2017-12-30] MEDS ORDERED: DIPHENHYDRAMINE HCL 25 MG CAPSULE GT PRN (23:45)
[2017-12-30] MEDS ORDERED: BISACODYL 10 MG/SUPPOSITORY RC PRN (23:45)
[2017-12-30] MEDS ORDERED: IPRATROPIUM BROM 0.5 MG/2.5 ML VIAL.NEB (ATROVENT) INH PRN (23:45)
[2017-12-30] MEDS ORDERED: CHLORHEXIDINE GLUCONATE 15 ML/DOSE, 480 ML MM SCH (23:45)
[2017-12-30] MEDS ORDERED: PIPERACILLIN/TAZOBACTAM 3.375 GM/VIAL (ZOSYN) IV ONE (23:52)
[2017-12-30] MEDS ORDERED: AZITHROMYCIN 500 MG/VIAL (ZITHROMAX) IV ONE (23:52)
[2017-12-31] VITALS (18 sets, daily range): BP systolic 88–161
[2017-12-31] MEDS: PIPERACILLIN/TAZO 3.375/DEX-IS 50 ML IV SCH ×6 (00:14→23:12)
[2017-12-31] MEDS: AZITHROMYCIN 500 MG in NS 250 ML IV SCH ×2 (01:10→23:52)
[2017-12-31] MEDS: PANTOPRAZOLE SODIUM 40 MG in NS 50 ML IV SCH ×5 (02:43→22:13)
[2017-12-31] MEDS ORDERED: PANTOPRAZOLE SODIUM 40 MG/VIAL (PROTONIX) ONE (02:48)
[2017-12-31] MEDS: IPRATROPIUM/ALBUTEROL SULFATE 3 ML AMPUL.NEB (DUONEB) INH SCH ×6 (03:49→23:39)
[2017-12-31] MEDS: VALPROIC ACID ORAL SYRUP 250 MG/5 ML UDC GT SCH ×4 (06:00→21:27)
[2017-12-31 06:51] LABS: PROTHROMBIN TIME 10.4 SECS (9.5-12.5)
[2017-12-31 07:08] LABS: BASOPHILS % (AUTO) 0.2 % (0.0-2.0); EOSINOPHILS % (AUTO) 0.3 % (0.0-4.0); HEMATOCRIT 38.9 % (36-54); LYMPHOCYTES # (AUTO) 0.5 K/uL (1.0-5.5); LYMPHOCYTES % (AUTO) 4.5 % (20.5-51.5); MEAN CORPUSCULAR HEMOGLOBIN 31 pg (27-31); MEAN CORPUSCULAR HGB CONC 31 % (32-36); MEAN CORPUSCULAR VOLUME 101 fL (79.0-98.0); MONOCYTES # (AUTO) 1.1 K/uL (0.0-1.0); MONOCYTES % (AUTO) 10.7 % (1.7-9.3); NEUTROPHILS # (AUTO) 8.6 K/uL (1.8-7.7); NEUTROPHILS % (AUTO) 84.3 % (40.0-70.0); PLATELET COUNT (AUTO) 142 K/uL (130-430); RED BLOOD CELL COUNT(AUTO) 3.87 MIL/uL (4.2-6.2); RED CELL DISTRIBUTION WIDTH 13.9 % (9.0-15.0); WHITE BLOOD COUNT (AUTO) 10.2 K/uL (4.8-10.8)
[2017-12-31 07:23] LABS: CHLORIDE 104 mmol/L (98-107); POTASSIUM 5.1 mmol/L (3.5-5.1); SODIUM SERUM 146 mmol/L (136-145)
[2017-12-31 07:27] LABS: ANION GAP < 1 (5-15); CALCIUM 8.9 mg/dL (8.4-11.0); CREATININE 0.99 mg/dL (0.55-1.30); GFR AFRICAN AMERICAN 102 mL/min (>90); GLUCOSE 136 mg/dL (70-99); UREA NITROGEN, BLOOD 23 mg/dL (8-21)
[2017-12-31 07:28] LABS: ALANINE AMINOTRANSFERASE 33 U/L (12-78); ALBUMIN 3.1 g/dL (3.4-4.8); ASPARTATE AMINOTRANSFERASE 48 U/L (10-37); TOTAL BILIRUBIN 0.4 mg/dL (0.0-1.0)
[2017-12-31 07:29] LABS: LIPASE 246 U/L (73-393); PHOSPHORUS 4.3 mg/dL (2.7-4.5)
[2017-12-31 07:58] LABS: FREE T4 (FREE THYROXINE) 0.4 ng/dL (0.6-1.6); THYROID STIMULATING HORMONE 0.53 uIu/mL (0.34-4.82)
[2017-12-31] MEDS ORDERED: CHLORHEXIDINE GLUCONATE 15 ML/DOSE, 480 ML MM SCH (08:05)
[2017-12-31] MEDS: HYDROXYCHLOROQUINE SULFATE 200 MG TABLET GT SCH ×2 (09:00→21:26)
[2017-12-31] MEDS: FOLIC ACID 1 MG TABLET GT SCH (09:00)
[2017-12-31] MEDS: sulfASALAZINE 500 MG TABLET (AZULFIDINE) GT SCH ×2 (09:00→21:26)
[2017-12-31] MEDS: LACTOBACILLUS RHAMNOSUS GG 1 CAP CAPSULE GT SCH ×2 (09:00→20:53)
[2017-12-31] MEDS: THIAMINE HCL 100 MG TABLET GT SCH (09:00)
[2017-12-31] MEDS: FAMOTIDINE 20 MG TABLET GT SCH (09:00)
[2017-12-31] MEDS ORDERED: NACL 0.9% 1,000 ML IV ONE ×2 (11:30→14:30)
[2017-12-31] MEDS ORDERED: FLUMAZENIL 0.1 MG/ML IVP PRN (11:30)
[2017-12-31] MEDS ORDERED: NACL 0.9% 1,000 ML IV SCH (12:45)
[2017-12-31] MEDS ORDERED: HYDROCORTISONE SOD SUCC 100 MG/2 ML VIAL IVP ONE (14:30)
[2017-12-31] MEDS ORDERED: METOCLOPRAMIDE HCL 10 MG/2 ML VIAL IVP ONE (14:45)
[2017-12-31] MEDS ORDERED: VANCOMYCIN HCL 500 MG in NS 100 ML IV SCH (15:00)
[2017-12-31] MEDS ORDERED: PANTOPRAZOLE SODIUM 40 MG in NS 50 ML IV SCH (15:00)
[2017-12-31] MEDS: D5LR 1,000 ML IV SCH (15:38)
[2017-12-31] MEDS: METOCLOPRAMIDE HCL 10 MG/2 ML VIAL IVP SCH ×2 (18:07→23:51)
[2017-12-31] MEDS: ATORVASTATIN 20 MG TABLET GT SCH (20:53)
[2017-12-31] MEDS ORDERED: PANTOPRAZOLE SODIUM 40 MG/VIAL (PROTONIX) IVP SCH (21:00)
[2017-12-31] MEDS: MILK OF MAGNESIA 30 ML UDC PO SCH (21:00)
[2017-12-31] MEDS ORDERED: sulfASALAZINE 500 MG TABLET (AZULFIDINE) ONE (21:04)
[2017-12-31] MEDS ORDERED: HYDROXYCHLOROQUINE SULFATE 200 MG TABLET ONE (21:08)
[2017-12-31] MEDS: HYDROCORTISONE SOD SUCC 100 MG/2 ML VIAL IVP SCH (21:27)
[2018-01-01] VITALS (29 sets, daily range): BP systolic 113–163
[2018-01-01] MEDS: PANTOPRAZOLE SODIUM 40 MG in NS 50 ML IV SCH ×5 (03:40→21:25)
[2018-01-01] MEDS: IPRATROPIUM/ALBUTEROL SULFATE 3 ML AMPUL.NEB (DUONEB) INH SCH ×6 (03:56→23:18)
[2018-01-01] MEDS: METOCLOPRAMIDE HCL 10 MG/2 ML VIAL IVP SCH (06:03)
[2018-01-01] MEDS: PIPERACILLIN/TAZO 3.375/DEX-IS 50 ML IV SCH ×3 (06:03→17:33)
[2018-01-01] MEDS: HYDROCORTISONE SOD SUCC 100 MG/2 ML VIAL IVP SCH (06:03)
[2018-01-01] MEDS: D5LR 1,000 ML IV SCH ×3 (06:05→21:28)
[2018-01-01] MEDS: VALPROIC ACID ORAL SYRUP 250 MG/5 ML UDC GT SCH ×3 (06:05→21:27)
[2018-01-01 06:43] LABS: CALCIUM 8.7 mg/dL (8.4-11.0); CREATININE 1.45 mg/dL (0.55-1.30); POTASSIUM 3.2 mmol/L (3.5-5.1)
[2018-01-01 06:49] LABS: BASOPHILS % (AUTO) 0.2 % (0.0-2.0); HEMATOCRIT 29.8 % (36-54); HEMOGLOBIN 9.2 g/dL (14.0-18.0); LYMPHOCYTES # (AUTO) 0.5 K/uL (1.0-5.5); LYMPHOCYTES % (AUTO) 5.8 % (20.5-51.5); MEAN CORPUSCULAR HEMOGLOBIN 31 pg (27-31); MEAN CORPUSCULAR HGB CONC 31 % (32-36); MEAN CORPUSCULAR VOLUME 99 fL (79.0-98.0); MONOCYTES # (AUTO) 0.6 K/uL (0.0-1.0); MONOCYTES % (AUTO) 6.7 % (1.7-9.3); NEUTROPHILS # (AUTO) 7.8 K/uL (1.8-7.7); NEUTROPHILS % (AUTO) 87.3 % (40.0-70.0); PLATELET COUNT (AUTO) 128 K/uL (130-430); RED BLOOD CELL COUNT(AUTO) 3.01 MIL/uL (4.2-6.2); RED CELL DISTRIBUTION WIDTH 14.1 % (9.0-15.0); WHITE BLOOD COUNT (AUTO) 8.9 K/uL (4.8-10.8)
[2018-01-01 07:05] LABS: ALBUMIN 2.6 g/dL (3.4-4.8); FREE T4 (FREE THYROXINE) 1.2 ng/dl (0.8-1.5); TOTAL BILIRUBIN 0.5 mg/dL (0.0-1.0)
[2018-01-01 07:52] LABS: PHOSPHORUS 0.7 mg/dL (2.7-4.5)
[2018-01-01] MEDS ORDERED: K PHOS 30 MM in NS 250 ML IV ONE (08:15)
[2018-01-01] MEDS: FAMOTIDINE 20 MG TABLET GT SCH (08:16)
[2018-01-01] MEDS: LACTOBACILLUS RHAMNOSUS GG 1 CAP CAPSULE GT SCH ×2 (08:16→21:26)
[2018-01-01] MEDS: FOLIC ACID 1 MG TABLET GT SCH (08:16)
[2018-01-01] MEDS: THIAMINE HCL 100 MG TABLET GT SCH (08:16)
[2018-01-01] MEDS: sulfASALAZINE 500 MG TABLET (AZULFIDINE) GT SCH ×2 (10:26→21:26)
[2018-01-01] MEDS: HYDROXYCHLOROQUINE SULFATE 200 MG TABLET GT SCH ×2 (10:26→21:26)
[2018-01-01] MEDS: ACETAMINOPHEN 325 MG TABLET GT PRN (13:30)
[2018-01-01] MEDS ORDERED: HYDROCORTISONE SOD SUCC 100 MG/2 ML VIAL IVP SCH (14:00)
[2018-01-01] MEDS ORDERED: LOPERAMIDE HCL 2 MG CAPSULE GT ONE (19:00)
[2018-01-01] MEDS ORDERED: cloNIDine HCL 0.1 MG TABLET PO PRN (19:15)
[2018-01-01] MEDS: LIPASE/PROTEASE/AMYLASE 1 CAP PO SCH (19:20)
[2018-01-01] MEDS: MILK OF MAGNESIA 30 ML UDC PO SCH (21:00)
[2018-01-01] MEDS: LOPERAMIDE HCL 2 MG CAPSULE GT SCH (21:25)
[2018-01-01] MEDS: ATORVASTATIN 20 MG TABLET GT SCH (21:26)
[2018-01-02] VITALS (18 sets, daily range): BP systolic 125–157
[2018-01-02] MEDS: PIPERACILLIN/TAZO 3.375/DEX-IS 50 ML IV SCH ×5 (00:30→23:14)
[2018-01-02] MEDS: AZITHROMYCIN 500 MG in NS 250 ML IV SCH (00:30)
[2018-01-02] MEDS: PANTOPRAZOLE SODIUM 40 MG in NS 50 ML IV SCH ×4 (02:41→21:48)
[2018-01-02] MEDS: LORazepam 2 MG/ML VIAL IVP PRN ×5 (02:42→23:11)
[2018-01-02] MEDS: IPRATROPIUM/ALBUTEROL SULFATE 3 ML AMPUL.NEB (DUONEB) INH SCH ×5 (03:59→23:24)
[2018-01-02] MEDS: VALPROIC ACID ORAL SYRUP 250 MG/5 ML UDC GT SCH ×3 (05:06→21:53)
[2018-01-02] MEDS: D5LR 1,000 ML IV SCH ×2 (05:06→17:58)
[2018-01-02 06:21] LABS: CALCIUM 8.4 mg/dL (8.4-11.0); CREATININE 1.2 mg/dL (0.55-1.30)
[2018-01-02 06:31] LABS: ALBUMIN 2.3 g/dL (3.4-4.8); POTASSIUM 2.2 mmol/L (3.5-5.1); TOTAL BILIRUBIN 0.3 mg/dL (0.0-1.0)
[2018-01-02] MEDS ORDERED: POTASSIUM CHLORIDE 40 MEQ, LIDOCAINE JECT 2% PF 100 MG 50 MG in NS 250 ML IV ONE (07:00)
[2018-01-02 07:01] LABS: BASOPHILS # (AUTO) 0.1 K/uL (0.0-0.2); BASOPHILS % (AUTO) 1.3 % (0.0-2.0); EOSINOPHILS % (AUTO) 0.2 % (0.0-4.0); HEMATOCRIT 27.3 % (36-54); HEMOGLOBIN 8.7 g/dL (14.0-18.0); LYMPHOCYTES # (AUTO) 0.7 K/uL (1.0-5.5); LYMPHOCYTES % (AUTO) 15.8 % (20.5-51.5); MEAN CORPUSCULAR HEMOGLOBIN 31 pg (27-31); MEAN CORPUSCULAR HGB CONC 32 % (32-36); MEAN CORPUSCULAR VOLUME 97 fL (79.0-98.0); MONOCYTES # (AUTO) 0.4 K/uL (0.0-1.0); MONOCYTES % (AUTO) 8.4 % (1.7-9.3); NEUTROPHILS # (AUTO) 3.4 K/uL (1.8-7.7); NEUTROPHILS % (AUTO) 74.3 % (40.0-70.0); PLATELET COUNT (AUTO) 104 K/uL (130-430); RED BLOOD CELL COUNT(AUTO) 2.83 MIL/uL (4.2-6.2); RED CELL DISTRIBUTION WIDTH 14.4 % (9.0-15.0); WHITE BLOOD COUNT (AUTO) 4.6 K/uL (4.8-10.8)
[2018-01-02] MEDS ORDERED: POTASSIUM CHLORIDE 20 MEQ/PKT PACKET PO ONE (07:30)
[2018-01-02] MEDS: FAMOTIDINE 20 MG TABLET GT SCH (07:56)
[2018-01-02] MEDS: LACTOBACILLUS RHAMNOSUS GG 1 CAP CAPSULE GT SCH ×2 (07:56→21:50)
[2018-01-02] MEDS: LIPASE/PROTEASE/AMYLASE 1 CAP PO SCH ×2 (07:56→11:34)
[2018-01-02] MEDS: FOLIC ACID 1 MG TABLET GT SCH (07:56)
[2018-01-02] MEDS: HYDROXYCHLOROQUINE SULFATE 200 MG TABLET GT SCH ×2 (07:57→21:50)
[2018-01-02] MEDS: THIAMINE HCL 100 MG TABLET GT SCH (07:57)
[2018-01-02] MEDS: sulfASALAZINE 500 MG TABLET (AZULFIDINE) GT SCH ×2 (08:05→21:49)
[2018-01-02] MEDS ORDERED: POTASSIUM CHLORIDE 20 MEQ TAB.PRT.SR PO SCH (09:00)
[2018-01-02] MEDS: LOPERAMIDE HCL 2 MG CAPSULE GT SCH ×3 (09:00→21:50)
[2018-01-02] MEDS ORDERED: COMMUNICATION ORDER XX ONE (13:15)
[2018-01-02] MEDS ORDERED: cloNIDine HCL 0.1 MG TABLET GT PRN (13:17)
[2018-01-02] MEDS ORDERED: K PHOS 30 MM in NS 250 ML IV ONE (14:00)
[2018-01-02 14:38] LABS: TOTAL IRON BIND. CAPACITY 158 ug/dL (250-450)
[2018-01-02] MEDS: NAPH,MB-DB/K PH,MBDB 250 MG TAB GT SCH ×2 (15:06→21:49)
[2018-01-02] MEDS: LIPASE/PROTEASE/AMYLASE 1 CAP GT SCH (17:46)
[2018-01-02] MEDS ORDERED: MENTHOL/ZINC OXIDE 113 GM OINT. TP PRN (18:00)
[2018-01-02] MEDS: POTASSIUM CHLORIDE 20 MEQ/PKT PACKET GT SCH (21:49)
[2018-01-02] MEDS: MILK OF MAGNESIA 30 ML UDC GT SCH (21:49)
[2018-01-02] MEDS: ATORVASTATIN 20 MG TABLET GT SCH (21:50)
[2018-01-03] MEDS: LORazepam 2 MG/ML VIAL IVP PRN ×4 (01:27→18:10)
[2018-01-03] MEDS: PANTOPRAZOLE SODIUM 40 MG in NS 50 ML IV SCH ×5 (01:32→20:26)
[2018-01-03] MEDS: IPRATROPIUM/ALBUTEROL SULFATE 3 ML AMPUL.NEB (DUONEB) INH SCH ×6 (03:55→23:44)
[2018-01-03] MEDS: PIPERACILLIN/TAZO 3.375/DEX-IS 50 ML IV SCH ×2 (05:38→11:25)
[2018-01-03] MEDS: VALPROIC ACID ORAL SYRUP 250 MG/5 ML UDC GT SCH ×3 (05:38→22:48)
[2018-01-03 07:37] LABS: FOLATE (FOLIC ACID) >20.0 ng/mL (>3.0)
[2018-01-03 08:00] VITALS: BP_SYST 127
[2018-01-03] MEDS: LIPASE/PROTEASE/AMYLASE 1 CAP GT SCH ×3 (08:37→18:08)
[2018-01-03] MEDS: FOLIC ACID 1 MG TABLET GT SCH (08:38)
[2018-01-03] MEDS: HYDROXYCHLOROQUINE SULFATE 200 MG TABLET GT SCH ×2 (08:38→20:32)
[2018-01-03] MEDS: FAMOTIDINE 20 MG TABLET GT SCH (08:39)
[2018-01-03] MEDS: LOPERAMIDE HCL 2 MG CAPSULE GT SCH ×3 (08:40→20:27)
[2018-01-03] MEDS: LACTOBACILLUS RHAMNOSUS GG 1 CAP CAPSULE GT SCH ×2 (08:40→20:28)
[2018-01-03] MEDS: THIAMINE HCL 100 MG TABLET GT SCH (08:41)
[2018-01-03] MEDS: NAPH,MB-DB/K PH,MBDB 250 MG TAB GT SCH ×3 (08:41→20:28)
[2018-01-03] MEDS: POTASSIUM CHLORIDE 20 MEQ/PKT PACKET GT SCH ×2 (08:42→20:27)
[2018-01-03] MEDS: sulfASALAZINE 500 MG TABLET (AZULFIDINE) GT SCH ×2 (09:14→20:27)
[2018-01-03 12:00] VITALS: BP_SYST 132
[2018-01-03] MEDS: D5LR 1,000 ML IV SCH (12:10)
[2018-01-03] MEDS ORDERED: QUEtiapine FUMARATE 25 MG TABLET PO ONE (14:30)
[2018-01-03 14:44] LABS: BASOPHILS % (AUTO) 0.4 % (0.0-2.0); EOSINOPHILS # (AUTO) 0.2 K/uL (0.0-0.4); HEMATOCRIT 29.2 % (36-54); LYMPHOCYTES # (AUTO) 0.7 K/uL (1.0-5.5); LYMPHOCYTES % (AUTO) 12.3 % (20.5-51.5); MEAN CORPUSCULAR HEMOGLOBIN 29 pg (27-31); MEAN CORPUSCULAR HGB CONC 31 % (32-36); MEAN CORPUSCULAR VOLUME 96 fL (79.0-98.0); MONOCYTES # (AUTO) 0.3 K/uL (0.0-1.0); MONOCYTES % (AUTO) 5.7 % (1.7-9.3); NEUTROPHILS # (AUTO) 4.1 K/uL (1.8-7.7); NEUTROPHILS % (AUTO) 77.6 % (40.0-70.0); PLATELET COUNT (AUTO) 143 K/uL (130-430); RED BLOOD CELL COUNT(AUTO) 3.06 MIL/uL (4.2-6.2); RED CELL DISTRIBUTION WIDTH 15.1 % (9.0-15.0); WHITE BLOOD COUNT (AUTO) 5.3 K/uL (4.8-10.8)
[2018-01-03 15:21] LABS: CALCIUM 8.4 mg/dL (8.4-11.0); CREATININE 1.2 mg/dL (0.55-1.30); POTASSIUM 3.2 mmol/L (3.5-5.1)
[2018-01-03] MEDS ORDERED: MULTIVIT-MINERALS/FERROUS GLUC 15 ML UDC GT ONE (15:45)
[2018-01-03] MEDS ORDERED: ERGOCALCIFEROL 8000 UNITS/ML ORAL SOLUTION, 60 ML BOTTLE GT ONE (15:45)
[2018-01-03 16:00] VITALS: BP_SYST 140
[2018-01-03] MEDS ORDERED: POTASSIUM CHLORIDE 20 MEQ/PKT PACKET GT ONE (16:00)
[2018-01-03 16:09] LABS: ALBUMIN 2.4 g/dL (3.4-4.8); TOTAL BILIRUBIN 0.3 mg/dL (0.0-1.0)
[2018-01-03 16:10] LABS: PHOSPHORUS 3.6 mg/dL (2.7-4.5)
[2018-01-03] MEDS ORDERED: NS IV SCH (17:00)
[2018-01-03] MEDS ORDERED: AMIKACIN SULFATE IV SCH (17:00)
[2018-01-03] MEDS: ATORVASTATIN 20 MG TABLET GT SCH (20:27)
[2018-01-03] MEDS: QUEtiapine FUMARATE 25 MG TABLET PO SCH (20:28)
[2018-01-03] MEDS: MILK OF MAGNESIA 30 ML UDC GT SCH (20:28)
[2018-01-03 23:35] VITALS: BP_SYST 132
[2018-01-04] MEDS: LORazepam 2 MG/ML VIAL IVP PRN ×2 (00:56→08:04)
[2018-01-04] MEDS: PANTOPRAZOLE SODIUM 40 MG in NS 50 ML IV SCH ×5 (00:57→20:22)
[2018-01-04] MEDS: IPRATROPIUM/ALBUTEROL SULFATE 3 ML AMPUL.NEB (DUONEB) INH SCH ×6 (03:43→23:34)
[2018-01-04] MEDS: VALPROIC ACID ORAL SYRUP 250 MG/5 ML UDC GT SCH ×3 (05:37→21:06)
[2018-01-04] MEDS: D5LR 1,000 ML IV SCH ×2 (05:40→23:17)
[2018-01-04 07:43] LABS: BASOPHILS % (AUTO) 0.2 % (0.0-2.0); EOSINOPHILS # (AUTO) 0.3 K/uL (0.0-0.4); EOSINOPHILS % (AUTO) 4.9 % (0.0-4.0); HEMOGLOBIN 9.4 g/dL (14.0-18.0); LYMPHOCYTES # (AUTO) 0.9 K/uL (1.0-5.5); LYMPHOCYTES % (AUTO) 13.3 % (20.5-51.5); MEAN CORPUSCULAR HEMOGLOBIN 31 pg (27-31); MEAN CORPUSCULAR HGB CONC 33 % (32-36); MEAN CORPUSCULAR VOLUME 96 fL (79.0-98.0); MONOCYTES # (AUTO) 0.5 K/uL (0.0-1.0); MONOCYTES % (AUTO) 6.9 % (1.7-9.3); NEUTROPHILS # (AUTO) 5.1 K/uL (1.8-7.7); NEUTROPHILS % (AUTO) 74.7 % (40.0-70.0); PLATELET COUNT (AUTO) 148 K/uL (130-430); RED BLOOD CELL COUNT(AUTO) 3.03 MIL/uL (4.2-6.2); RED CELL DISTRIBUTION WIDTH 15.1 % (9.0-15.0); WHITE BLOOD COUNT (AUTO) 6.8 K/uL (4.8-10.8)
[2018-01-04 07:46] LABS: ALBUMIN 2.5 g/dL (3.4-4.8); CALCIUM 8.8 mg/dL (8.4-11.0); CREATININE 1.28 mg/dL (0.55-1.30); POTASSIUM 3.7 mmol/L (3.5-5.1); TOTAL BILIRUBIN 0.4 mg/dL (0.0-1.0)
[2018-01-04 08:00] VITALS: BP_SYST 144
[2018-01-04] MEDS ORDERED: ERGOCALCIFEROL 8000 UNITS/ML ORAL SOLUTION, 60 ML BOTTLE GT SCH (09:00)
[2018-01-04] MEDS ORDERED: MULTIVIT-MINERALS/FERROUS GLUC 15 ML UDC GT SCH (09:00)
[2018-01-04] MEDS: FAMOTIDINE 20 MG TABLET GT SCH (09:21)
[2018-01-04] MEDS: THIAMINE HCL 100 MG TABLET GT SCH (09:21)
[2018-01-04] MEDS: QUEtiapine FUMARATE 25 MG TABLET PO SCH ×2 (09:22→20:31)
[2018-01-04] MEDS: HYDROXYCHLOROQUINE SULFATE 200 MG TABLET GT SCH ×2 (09:22→20:31)
[2018-01-04] MEDS: NAPH,MB-DB/K PH,MBDB 250 MG TAB GT SCH ×3 (09:22→20:31)
[2018-01-04] MEDS: sulfASALAZINE 500 MG TABLET (AZULFIDINE) GT SCH ×2 (09:22→20:29)
[2018-01-04] MEDS: FOLIC ACID 1 MG TABLET GT SCH (09:22)
[2018-01-04] MEDS: POTASSIUM CHLORIDE 20 MEQ/PKT PACKET GT SCH ×3 (09:22→20:30)
[2018-01-04] MEDS: LIPASE/PROTEASE/AMYLASE 1 CAP GT SCH ×3 (09:23→17:57)
[2018-01-04] MEDS: LACTOBACILLUS RHAMNOSUS GG 1 CAP CAPSULE GT SCH ×2 (09:23→20:29)
[2018-01-04] MEDS: LOPERAMIDE HCL 2 MG CAPSULE GT SCH ×3 (09:24→20:31)
[2018-01-04 11:15] VITALS: BP_SYST 126
[2018-01-04 16:00] VITALS: BP_SYST 140
[2018-01-04] MEDS ORDERED: ERTAPENEM SODIUM 1 GM in NS 50 ML IV SCH (16:30)
[2018-01-04 16:45] VITALS: BP_SYST 131
[2018-01-04] MEDS: ACETAMINOPHEN 325 MG TABLET GT PRN (17:58)
[2018-01-04 19:19] VITALS: BP_SYST 128
[2018-01-04] MEDS: MILK OF MAGNESIA 30 ML UDC GT SCH (20:30)
[2018-01-04] MEDS: ATORVASTATIN 20 MG TABLET GT SCH (20:30)
[2018-01-04 23:07] VITALS: BP_SYST 136
== END 2018-01-05 00:12 | DRG 720 ==
LOC: SED 12:59 → STU 15:45 → SIC 12-31 10:38 → STU 01-02 11:55
PROVIDERS: ADMIT Internal Medicine; ATTEND Internal Medicine
PROC: 5A1955Z Respiratory Ventilation, Greater than 96 Consecutive Hours (ICD-10-PCS; principal; 2017-12-31)
DX: A41.9 Sepsis, unspecified organism (principal); J96.22 Acute and chronic respiratory failure with hypercapnia; N17.0 Acute kidney failure with tubular necrosis; I21.4 Non-ST elevation (NSTEMI) myocardial infarction; E43 Unspecified severe protein-calorie malnutrition; R40.20 Unspecified coma; G93.1 Anoxic brain damage, not elsewhere classified; A04.72 Enterocolitis due to Clostridium difficile, not specified as recurrent; J18.9 Pneumonia, unspecified organism; Z99.11 Dependence on respirator [ventilator] status; D69.59 Other secondary thrombocytopenia; E86.0 Dehydration; K29.71 Gastritis, unspecified, with bleeding; E87.0 Hyperosmolality and hypernatremia; R53.2 Functional quadriplegia; B36.9 Superficial mycosis, unspecified; Y95 Nosocomial condition; I51.7 Cardiomegaly; L21.9 Seborrheic dermatitis, unspecified; M06.9 Rheumatoid arthritis, unspecified; R13.10 Dysphagia, unspecified; E11.22 Type 2 diabetes mellitus with diabetic chronic kidney disease; E78.00 Pure hypercholesterolemia, unspecified; W18.39XA Other fall on same level, initial encounter; S09.90XA Unspecified injury of head, initial encounter; N30.00 Acute cystitis without hematuria; D63.8 Anemia in other chronic diseases classified elsewhere; F41.9 Anxiety disorder, unspecified; G89.4 Chronic pain syndrome; H35.30 Unspecified macular degeneration; J44.0 Chronic obstructive pulmonary disease with (acute) lower respiratory infection; G40.909 Epilepsy, unspecified, not intractable, without status epilepticus; D62 Acute posthemorrhagic anemia; E87.6 Hypokalemia; E83.39 Other disorders of phosphorus metabolism; F32.3 Major depressive disorder, single episode, severe with psychotic features; B96.1 Klebsiella pneumoniae [K. pneumoniae] as the cause of diseases classified elsewhere; B96.20 Unspecified Escherichia coli [E. coli] as the cause of diseases classified elsewhere; Z93.0 Tracheostomy status; Z93.1 Gastrostomy status; Y93.89 Activity, other specified; Y92.128 Other place in nursing home as the place of occurrence of the external cause; Y99.8 Other external cause status; I69.351 Hemiplegia and hemiparesis following cerebral infarction affecting right dominant side; Z74.01 Bed confinement status; Z68.24 Body mass index [BMI] 24.0-24.9, adult; Z95.0 Presence of cardiac pacemaker; Z91.011 Allergy to milk products; Z79.899 Other long term (current) drug therapy; Z98.2 Presence of cerebrospinal fluid drainage device
CPT/HCPCS: 36415; 36600; 70450-TC; 71045; 74018; 80048; 80053; 80150; 80164-TC; 81000-TC; 82550-TC; 82553-TC; 82607; 82746; 82803-TC; 82962; 83540-TC; 83550-TC; 83690-TC; 83735-TC; 83880; 84100-TC; 84439; 84443-TC; 84484; 85025; 85610-TC; 85730-TC; 87070-TC; 87081; 87186-TC; 87205-TC; 90656; 90715; 93005; 93306; 94003; 94640; 94760; 96361; 96374; 96375; 99285; C9113; J0278; J0456; J1335; J1720; J2060; J2543; J2765; J3370; J3480; J7030; J7050; J7120; J7620

== ENCOUNTER 2018-08-13 18:20 | Inpatient (IN) | payer OTHER, MEDICAID ==
[~2018-08-13] VITALS: Ht 167.6 cm; Wt 70.8 kg
[~2018-08-13 18:20] MED LIST changes: -ACET12.55 PO; -ASCO500T20 GT; -DEPAK250 GT; -DOCU-144 GT; -LOVI30 SQ; -MULT-1117 GT; -NA P118E RC; -ONDA4TAB5 GT; +TRAM-350 PO; -TRAM1TAB33 PO; -TYLL650 GT; +TYLL650 PO; +VALP250S3 GT
[2018-08-13 18:25] VITALS: BP_SYST 99
[2018-08-13 19:32] LABS: BASOPHILS % (AUTO) 0.3 % (0.0-2.0); EOSINOPHILS # (AUTO) 0.2 K/uL (0.0-0.4); EOSINOPHILS % (AUTO) 3.2 % (0.0-4.0); HEMATOCRIT 22.9 % (36-54); HEMOGLOBIN 7.3 g/dL (14.0-18.0); LYMPHOCYTES # (AUTO) 0.9 K/uL (1.0-5.5); LYMPHOCYTES % (AUTO) 11.8 % (20.5-51.5); MEAN CORPUSCULAR HEMOGLOBIN 28 pg (27-31); MEAN CORPUSCULAR HGB CONC 32 % (32-36); MEAN CORPUSCULAR VOLUME 88 fL (79.0-98.0); MONOCYTES # (AUTO) 0.9 K/uL (0.0-1.0); MONOCYTES % (AUTO) 11.8 % (1.7-9.3); NEUTROPHILS # (AUTO) 5.2 K/uL (1.8-7.7); NEUTROPHILS % (AUTO) 72.9 % (40.0-70.0); PLATELET COUNT (AUTO) 330 K/uL (130-430); RED CELL DISTRIBUTION WIDTH 15.5 % (9.0-15.0); WHITE BLOOD COUNT (AUTO) 7.2 K/uL (4.8-10.8)
[2018-08-13 19:35] LABS: CALCIUM 8.3 mg/dL (8.4-11.0); CREATININE 0.96 mg/dL (0.55-1.30)
[2018-08-13 19:40] LABS: INR 1.1 (0.80-1.20); PROTHROMBIN TIME 10.9 SECS (9.5-12.5); TOTAL BILIRUBIN 0.2 mg/dL (0.0-1.0)
[2018-08-13] MEDS ORDERED: PANTOPRAZOLE SODIUM 40 MG/VIAL (PROTONIX) IVP ONE (21:15)
[2018-08-13 21:53] VITALS: BP_SYST 92
[2018-08-13 22:11] VITALS: BP_SYST 90
[2018-08-13 22:55] VITALS: BP_SYST 92
[2018-08-14] MEDS ORDERED: DIPHENHYDRAMINE HCL 25 MG CAPSULE GT SCH
[2018-08-14] MEDS ORDERED: BISACODYL 10 MG/SUPPOSITORY RC PRN
[2018-08-14] MEDS ORDERED: LEVALBUTEROL HCL 0.63 MG/3 ML VIAL.NEB INH SCH
[2018-08-14] MEDS ORDERED: ACETAMINOPHEN 650 MG/20.3 ML UDC PO PRN
[2018-08-14] MEDS ORDERED: LORazepam 2 MG/ML VIAL IVP PRN
[2018-08-14] MEDS ORDERED: IPRATROPIUM BROM 0.5 MG/2.5 ML VIAL.NEB (ATROVENT) INH PRN
[2018-08-14] MEDS: NACL 0.9% 1,000 ML IV SCH ×2 (00:08→17:15)
[2018-08-14] MEDS ORDERED: PANTOPRAZOLE SODIUM 40 MG/VIAL (PROTONIX) ONE (00:13)
[2018-08-14] MEDS ORDERED: DIPHENHYDRAMINE HCL 25 MG CAPSULE GT PRN (07:33)
[2018-08-14 08:15] VITALS: BP_SYST 98
[2018-08-14] MEDS ORDERED: ACETAMINOPHEN 650 MG/20.3 ML UDC GT PRN (08:30)
[2018-08-14] MEDS ORDERED: INSULIN REGULAR, HUMAN 100 UNITS/ML, 10 ML VIAL (humuLIN R) SUBCUT PRN (08:30)
[2018-08-14] MEDS ORDERED: D5W 1,000 ML IV PRN (08:45)
[2018-08-14] MEDS ORDERED: DEXTROSE 50%-WATER 50 ML DISP.SYRIN IVP PRN (08:45)
[2018-08-14] MEDS ORDERED: GLUCOSE 15 GM GEL (in 37.5 GM TUBE) PO PRN (08:45)
[2018-08-14] MEDS: CHLORHEXIDINE GLUCONATE 15 ML/DOSE, 480 ML MM SCH (08:53)
[2018-08-14] MEDS: PANTOPRAZOLE SODIUM 40 MG/VIAL (PROTONIX) IVP SCH ×2 (08:53→22:01)
[2018-08-14] MEDS: sulfASALAZINE 500 MG TABLET (AZULFIDINE) GT SCH ×2 (08:54→21:55)
[2018-08-14] MEDS: VALPROIC ACID ORAL SYRUP 250 MG/5 ML UDC GT SCH ×3 (08:54→22:02)
[2018-08-14] MEDS: THIAMINE HCL 100 MG TABLET GT SCH (08:54)
[2018-08-14] MEDS: FOLIC ACID 1 MG TABLET GT SCH (08:56)
[2018-08-14 09:26] LABS: BASOPHILS % (AUTO) 0.2 % (0.0-2.0); EOSINOPHILS % (AUTO) 0.3 % (0.0-4.0); HEMATOCRIT 27.9 % (36-54); HEMOGLOBIN 9.2 g/dL (14.0-18.0); LYMPHOCYTES # (AUTO) 0.8 K/uL (1.0-5.5); LYMPHOCYTES % (AUTO) 7.5 % (20.5-51.5); MEAN CORPUSCULAR HEMOGLOBIN 29 pg (27-31); MEAN CORPUSCULAR HGB CONC 33 % (32-36); MEAN CORPUSCULAR VOLUME 87 fL (79.0-98.0); MONOCYTES # (AUTO) 1.1 K/uL (0.0-1.0); MONOCYTES % (AUTO) 10.3 % (1.7-9.3); NEUTROPHILS # (AUTO) 8.9 K/uL (1.8-7.7); NEUTROPHILS % (AUTO) 81.7 % (40.0-70.0); PLATELET COUNT (AUTO) 265 K/uL (130-430); RED CELL DISTRIBUTION WIDTH 15.2 % (9.0-15.0); WHITE BLOOD COUNT (AUTO) 10.9 K/uL (4.8-10.8)
[2018-08-14 12:10] VITALS: BP_SYST 93
[2018-08-14] MEDS ORDERED: MULTIVITAMINS TAB 1 TABLET GT ONE (14:30)
[2018-08-14] MEDS: BALSAM PERU/CASTOR OIL 60 GM OINT...G. TP SCH (14:45)
[2018-08-14] MEDS: SOD FERRIC GLUC COMPLEX/SUC 125 MG in NS 100 ML IV SCH (14:45)
[2018-08-14 15:06] VITALS: BP_SYST 91
[2018-08-14] MEDS ORDERED: BISACODYL 5 MG TABLET.DR (DULCOLAX) PO ONE (17:00)
[2018-08-14] MEDS ORDERED: GOLYTELY / COLYTE SOLUTION 4 LITERS GT ONE (18:00)
[2018-08-14] MEDS: D5LR 1,000 ML IV SCH (18:14)
[2018-08-14 19:05] VITALS: BP_SYST 101
[2018-08-14] MEDS: MILK OF MAGNESIA 30 ML UDC PO SCH (21:55)
[2018-08-14] MEDS: MULTIVITAMINS TAB 1 TABLET GT SCH (21:55)
[2018-08-14] MEDS: ATORVASTATIN 20 MG TABLET GT SCH (22:01)
[2018-08-15 01:12] VITALS: BP_SYST 101
[2018-08-15] MEDS: D5LR 1,000 ML IV SCH ×2 (04:45→18:01)
[2018-08-15] MEDS: VALPROIC ACID ORAL SYRUP 250 MG/5 ML UDC GT SCH ×3 (06:00→21:02)
[2018-08-15 06:29] LABS: BASOPHILS % (AUTO) 0.2 % (0.0-2.0); EOSINOPHILS # (AUTO) 0.2 K/uL (0.0-0.4); EOSINOPHILS % (AUTO) 2.4 % (0.0-4.0); HEMATOCRIT 29.9 % (36-54); HEMOGLOBIN 9.6 g/dL (14.0-18.0); LYMPHOCYTES # (AUTO) 0.8 K/uL (1.0-5.5); LYMPHOCYTES % (AUTO) 11.3 % (20.5-51.5); MEAN CORPUSCULAR HEMOGLOBIN 28 pg (27-31); MEAN CORPUSCULAR HGB CONC 32 % (32-36); MEAN CORPUSCULAR VOLUME 87 fL (79.0-98.0); MONOCYTES # (AUTO) 0.8 K/uL (0.0-1.0); MONOCYTES % (AUTO) 12.5 % (1.7-9.3); NEUTROPHILS % (AUTO) 73.6 % (40.0-70.0); PLATELET COUNT (AUTO) 243 K/uL (130-430); RED BLOOD CELL COUNT(AUTO) 3.45 MIL/uL (4.2-6.2); RED CELL DISTRIBUTION WIDTH 15.3 % (9.0-15.0); WHITE BLOOD COUNT (AUTO) 6.7 K/uL (4.8-10.8)
[2018-08-15 06:46] LABS: INR 1.2 (0.80-1.20)
[2018-08-15 07:19] LABS: CALCIUM 8.4 mg/dL (8.4-11.0); CREATININE 0.91 mg/dL (0.55-1.30); THYROID STIMULATING HORMONE 2.07 uIu/mL (0.34-4.82)
[2018-08-15 07:55] VITALS: BP_SYST 98
[2018-08-15] MEDS ORDERED: POTASSIUM CHLORIDE 40 MEQ in NS 250 ML IV ONE (08:30)
[2018-08-15] MEDS: sulfASALAZINE 500 MG TABLET (AZULFIDINE) GT SCH ×2 (09:00→20:29)
[2018-08-15] MEDS: FOLIC ACID 1 MG TABLET GT SCH (09:00)
[2018-08-15] MEDS: MULTIVITAMINS TAB 1 TABLET GT SCH ×2 (09:00→20:29)
[2018-08-15] MEDS: THIAMINE HCL 100 MG TABLET GT SCH (09:00)
[2018-08-15] MEDS: BALSAM PERU/CASTOR OIL 60 GM OINT...G. TP SCH (09:22)
[2018-08-15] MEDS: PANTOPRAZOLE SODIUM 40 MG/VIAL (PROTONIX) IVP SCH ×2 (09:22→20:29)
[2018-08-15] MEDS ORDERED: SIMETHICONE 40 MG/0.6 ML ML ONE (11:22)
[2018-08-15] MEDS ORDERED: MEPERIDINE HCL/PF 100 MG/ML AMP ONE (11:22)
[2018-08-15 11:25] VITALS: BP_SYST 119
[2018-08-15] MEDS: CHLORHEXIDINE GLUCONATE 15 ML/DOSE, 480 ML MM SCH (11:25)
[2018-08-15] MEDS: MIDAZOLAM HCL 5 MG/5 ML VIAL ONE ×4 (14:20→14:45)
[2018-08-15] MEDS: SOD FERRIC GLUC COMPLEX/SUC 125 MG in NS 100 ML IV SCH (15:19)
[2018-08-15] MEDS ORDERED: POTASSIUM CHLORIDE 40 MEQ, LIDOCAINE JECT 2% PF 100 MG 50 MG in NS 250 ML IV ONE (15:45)
[2018-08-15] MEDS ORDERED: POTASSIUM CHLORIDE 20 MEQ/PKT PACKET GT ONE (15:45)
[2018-08-15 15:54] VITALS: BP_SYST 131
[2018-08-15 20:00] VITALS: BP_SYST 126
[2018-08-15] MEDS: MILK OF MAGNESIA 30 ML UDC PO SCH (20:28)
[2018-08-15] MEDS: ATORVASTATIN 20 MG TABLET GT SCH (20:29)
[2018-08-16 00:35] VITALS: BP_SYST 116
[2018-08-16] MEDS: D5LR 1,000 ML IV SCH (05:00)
[2018-08-16] MEDS: VALPROIC ACID ORAL SYRUP 250 MG/5 ML UDC GT SCH (05:01)
[2018-08-16 06:32] LABS: BASOPHILS % (AUTO) 0.3 % (0.0-2.0); EOSINOPHILS # (AUTO) 0.2 K/uL (0.0-0.4); EOSINOPHILS % (AUTO) 2.7 % (0.0-4.0); HEMATOCRIT 28.7 % (36-54); HEMOGLOBIN 9.1 g/dL (14.0-18.0); LYMPHOCYTES # (AUTO) 0.9 K/uL (1.0-5.5); LYMPHOCYTES % (AUTO) 12.7 % (20.5-51.5); MEAN CORPUSCULAR HEMOGLOBIN 28 pg (27-31); MEAN CORPUSCULAR HGB CONC 32 % (32-36); MEAN CORPUSCULAR VOLUME 88 fL (79.0-98.0); MONOCYTES # (AUTO) 0.8 K/uL (0.0-1.0); NEUTROPHILS # (AUTO) 5.5 K/uL (1.8-7.7); NEUTROPHILS % (AUTO) 73.3 % (40.0-70.0); PLATELET COUNT (AUTO) 274 K/uL (130-430); RED BLOOD CELL COUNT(AUTO) 3.26 MIL/uL (4.2-6.2); RED CELL DISTRIBUTION WIDTH 15.6 % (9.0-15.0); WHITE BLOOD COUNT (AUTO) 7.5 K/uL (4.8-10.8)
[2018-08-16 06:47] LABS: CALCIUM 8.3 mg/dL (8.4-11.0); CREATININE 0.91 mg/dL (0.55-1.30); POTASSIUM 4.1 mmol/L (3.5-5.1)
[2018-08-16 08:00] VITALS: BP_SYST 111
[2018-08-16] MEDS: CHLORHEXIDINE GLUCONATE 15 ML/DOSE, 480 ML MM SCH (08:26)
[2018-08-16] MEDS: BALSAM PERU/CASTOR OIL 60 GM OINT...G. TP SCH (08:26)
[2018-08-16] MEDS: MULTIVITAMINS TAB 1 TABLET GT SCH (08:27)
[2018-08-16] MEDS: PANTOPRAZOLE SODIUM 40 MG/VIAL (PROTONIX) IVP SCH (08:27)
[2018-08-16] MEDS: sulfASALAZINE 500 MG TABLET (AZULFIDINE) GT SCH (08:27)
[2018-08-16] MEDS: THIAMINE HCL 100 MG TABLET GT SCH (08:27)
[2018-08-16] MEDS: FOLIC ACID 1 MG TABLET GT SCH (08:27)
[2018-08-16] MEDS ORDERED: MUPIROCIN NASAL 2% OINT. NS SCH (09:00)
[2018-08-16] MEDS: SOD FERRIC GLUC COMPLEX/SUC 125 MG in NS 100 ML IV SCH (10:10)
[2018-08-16 12:03] VITALS: BP_SYST 111
[2018-08-16 12:30] VITALS: BP_SYST 111
[2018-08-16] MEDS ORDERED: MUPIROCIN 2% TOPICAL OINTMENT 22 GM NS SCH (21:00)
== END 2018-08-16 13:25 | DRG 811 ==
LOC: SED 18:20 → STU 21:13
PROVIDERS: ADMIT Internal Medicine; ATTEND Internal Medicine
PROC: 30233N1 Transfusion of Nonautologous Red Blood Cells into Peripheral Vein, Percutaneous Approach (ICD-10-PCS; principal; 2018-08-13)
PROC: 5A1945Z Respiratory Ventilation, 24-96 Consecutive Hours (ICD-10-PCS; 2018-08-13)
PROC: 0DB68ZX Excision of Stomach, Via Natural or Artificial Opening Endoscopic, Diagnostic (ICD-10-PCS; 2018-08-15)
PROC: 0DBM8ZZ Excision of Descending Colon, Via Natural or Artificial Opening Endoscopic (ICD-10-PCS; 2018-08-15)
PROC: 0DBL8ZZ Excision of Transverse Colon, Via Natural or Artificial Opening Endoscopic (ICD-10-PCS; 2018-08-15)
PROC: 0DB98ZX Excision of Duodenum, Via Natural or Artificial Opening Endoscopic, Diagnostic (ICD-10-PCS; 2018-08-15 12:30)
DX: D62 Acute posthemorrhagic anemia (principal); E43 Unspecified severe protein-calorie malnutrition; J96.20 Acute and chronic respiratory failure, unspecified whether with hypoxia or hypercapnia; G93.1 Anoxic brain damage, not elsewhere classified; Z99.11 Dependence on respirator [ventilator] status; I69.351 Hemiplegia and hemiparesis following cerebral infarction affecting right dominant side; E11.9 Type 2 diabetes mellitus without complications; E78.5 Hyperlipidemia, unspecified; H54.61 Unqualified visual loss, right eye, normal vision left eye; K29.70 Gastritis, unspecified, without bleeding; K44.9 Diaphragmatic hernia without obstruction or gangrene; K57.90 Diverticulosis of intestine, part unspecified, without perforation or abscess without bleeding; M06.9 Rheumatoid arthritis, unspecified; K64.9 Unspecified hemorrhoids; R13.10 Dysphagia, unspecified; E78.00 Pure hypercholesterolemia, unspecified; J44.9 Chronic obstructive pulmonary disease, unspecified; F32.9 Major depressive disorder, single episode, unspecified; F41.9 Anxiety disorder, unspecified; I49.5 Sick sinus syndrome; K64.8 Other hemorrhoids; D50.9 Iron deficiency anemia, unspecified; K63.5 Polyp of colon; D63.8 Anemia in other chronic diseases classified elsewhere; Z86.74 Personal history of sudden cardiac arrest; Z87.891 Personal history of nicotine dependence; Z93.1 Gastrostomy status; Z95.0 Presence of cardiac pacemaker; Z68.25 Body mass index [BMI] 25.0-25.9, adult; Z93.0 Tracheostomy status; Z91.011 Allergy to milk products; Z79.899 Other long term (current) drug therapy; Z79.82 Long term (current) use of aspirin
CPT/HCPCS: 36415; 43239; 45380; 71045; 80048; 80053; 80061; 82962; 84443-TC; 85025; 85610-TC; 85730-TC; 86886; 86900; 86901; 86920; 87081; 88305; 88312; 88313; 93005; 94002; 94003; 94640; 94760; 99285; C9113; G0378; J1815; J2060; J2175; J2250; J2916; J3480; J7030; J7040; J7050; J7120; P9021

== ENCOUNTER 2019-08-31 22:36 | Emergency (ER) | payer OTHER, MEDICAID ==
[~2019-08-31] VITALS: Ht 167.6 cm; Wt 59.0 kg
[2019-08-31 22:40] VITALS: BP_SYST 120
[2019-09-01 00:20] LABS: BILIRUBIN,URINE NEGATIVE (NEGATIVE); BLOOD, URINE NEGATIVE (NEGATIVE); CLARITY/URINE CLEAR (CLEAR); COLOR,URINE YELLOW (YELLOW); GLUCOSE,URINE NEGATIVE (NEGATIVE); KETONES,URINE NEGATIVE (NEGATIVE); LEUKOCYTE ESTERASE ,URINE NEGATIVE (NEGATIVE); NITRITE, URINE NEGATIVE (NEGATIVE); PH,URINE 7.5 (5.0-8.0); PROTEIN URINE NEGATIVE (NEGATIVE); UROBILINOGEN,URINE 0.2 (0.2-1.0)
[2019-09-01 01:45] VITALS: BP_SYST 125
== END 2019-09-01 01:45 | disposition home or self-care (01) ==
LOC: SED 22:36
DX: N20.0 Calculus of kidney (principal); R10.31 Right lower quadrant pain; J44.9 Chronic obstructive pulmonary disease, unspecified; E11.9 Type 2 diabetes mellitus without complications; F41.9 Anxiety disorder, unspecified; E78.00 Pure hypercholesterolemia, unspecified; M06.9 Rheumatoid arthritis, unspecified; F19.10 Other psychoactive substance abuse, uncomplicated; Z86.73 Personal history of transient ischemic attack (TIA), and cerebral infarction without residual deficits; Z95.0 Presence of cardiac pacemaker; Z79.899 Other long term (current) drug therapy; Z79.82 Long term (current) use of aspirin; Z91.011 Allergy to milk products
CPT/HCPCS: 81003; 99284